=== PATIENT | female | born 1960 | race Two or more races ===

== ENCOUNTER 2020-04-04 12:39 | Outpatient (CLI) | payer SELFPAY ==
[2020-04-04 14:02] LABS: BASOPHILS # (AUTO) 0.1 /CMM (0.0-0.2); BASOPHILS % (AUTO) 2.3 % (0.0-2.0); EOSINOPHILS % (AUTO) 5.5 % (0.0-6.0); HEMATOCRIT 43 % (33-45); HEMOGLOBIN 14.3 g/dL (11.5-14.8); LYMPHOCYTES # (AUTO) 1.7 /CMM (0.8-4.8); LYMPHOCYTES % (AUTO) 30.9 % (20.0-44.0); MEAN CORPUSCULAR HGB CONC 33 g/dl (31.0-36.0); MEAN CORPUSCULAR VOLUME 87 fL (82-100); MONOCYTES # (AUTO) 0.3 /CMM (0.1-1.30); MONOCYTES % (AUTO) 5.3 % (2.0-12.0); NEUTROPHILS # (AUTO) 3.1 /CMM (1.8-8.9); PLATELET COUNT (AUTO) 290 /CMM (150-450); RED BLOOD CELL COUNT(AUTO) 4.95 MIL/uL (4.0-5.2); WHITE BLOOD COUNT (AUTO) 5.5 K/uL (4.3-11.0)
[2020-04-04 15:16] LABS: CREATININE 0.8 mg/dL (0.6-1.3)
== END 2020-04-04 23:59 | disposition home or self-care (01) ==
LOC: LAB 12:39
PROVIDERS: ATTEND Nurse Practitioner Acute Care
DX: Z01.818 Encounter for other preprocedural examination (principal)
CPT/HCPCS: 36415; 80048-TC; 84702-TC; 85025-TC; 85610-TC; 85730-TC; 86803; 87806

== ENCOUNTER 2020-06-08 14:07 | Emergency (ER) | payer OTHER ==
[~2020-06-08] VITALS: Ht 160 cm; Wt 68.9 kg
--- NOTE | 2020-06-08 14:25 | NUR ---
FEVER AND COUGH X 2 DAYS. REQUESTING COVID TEST. 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 PATIENT A/OX4, BREATHING EVEN AND UNLABORED, NO SOB NOTED. VSS.
--- NOTE | 2020-06-08 15:10 | NUR ---
COVID SWAB SENT.
--- NOTE | 2020-06-08 15:58 | NUR ---
RECIEVED CALL FROM LAB. PT IS RAPID COVID (+)
[2020-06-08] MEDS ORDERED: MECL-159 PO (16:13)
[2020-06-08 16:46] VITALS: BP 110/65
--- NOTE | 2020-06-08 16:46 | NUR ---
PATIENT A/OX4, BREATHING EVEN AND UNLABORED, NOS OB NOTED, NEEDS ATTENDED. KEPT COMFORTABLE. Patient discharged to home in stable condition. Written and verbal after care instructions given. Patient verbalizes understanding of instruction.
== END 2020-06-08 16:46 | disposition home or self-care (01) ==
LOC: ER 14:13
DX: U07.1 COVID-19 (principal); R42 Dizziness and giddiness; Z79.899 Other long term (current) drug therapy
CPT/HCPCS: 70450; 71045; 87426; 99285; C9803 ×2; U0003

== ENCOUNTER 2022-05-02 17:19 | Emergency (ER) | payer OTHER ==
[~2022-05-02] VITALS: Ht 160 cm; Wt 62.6 kg
[~2022-05-02 17:19] MED LIST: MECL-159 PO
[2022-05-02 17:22] VITALS: BP 133/87
[2022-05-02] MEDS ORDERED: ACETAMINOPHEN 325 MG TABLET PO ONE (19:30)
[2022-05-02] MEDS ORDERED: DEXAMETHASONE SOD PHOSPHATE 10 MG/ML VIAL IM ONE (19:30)
--- NOTE | 2022-05-02 19:43 | NUR ---
SWAB FOR COVID19, RAPID INFLUENZA, RAPID STREP SENT TO LAB
[2022-05-02] MEDS ORDERED: IBUP-1955 PO (19:44)
[2022-05-02] MEDS ORDERED: BENZ-13 PO (19:44)
[2022-05-02] MEDS ORDERED: AMOX500C2 PO (19:45)
[2022-05-02] MEDS ORDERED: DEXAMETHASONE SOD PHOSPHATE 10 MG/ML VIAL ONE (19:48)
[2022-05-02] MEDS ORDERED: ACETAMINOPHEN 325 MG TABLET ONE (19:48)
--- NOTE | 2022-05-02 20:14 | NUR ---
Patient discharged to home in stable condition. Written and verbal after care instructions given. Patient verbalizes understanding of instruction.
== END 2022-05-02 20:13 | disposition home or self-care (01) ==
LOC: ER 17:20
DX: J06.9 Acute upper respiratory infection, unspecified (principal); J02.9 Acute pharyngitis, unspecified; Z20.822 Contact with and (suspected) exposure to COVID-19
CPT/HCPCS: 99283; 87426; 96372; 87804; 87880; U0003; J1100; C9803; 86403-TC

== ENCOUNTER 2022-05-09 10:06 | Inpatient (IN) | payer OTHER ==
[~2022-05-09] VITALS: Ht 160 cm; Wt 62.6 kg
[~2022-05-09 10:06] MED LIST changes: +AMOX500C2 PO; +BENZ-13 PO; +IBUP-1955 PO
--- NOTE | 2022-05-09 10:07 | NUR ---
pt to er bed 07 c/o sudden onset chest pain 10 minutes prior to coming in. pt was working when she started feeling nauseated, chest discomfort w/ "pounding headache" endorses that she had 2 episosde of vomiting. gowned and placed on monitor. NSR on tele. no noted ectopy. awaiting md lee.
--- NOTE | 2022-05-09 10:16 | NUR ---
dr cruz at bedside for eval.
[2022-05-09] MEDS ORDERED: ONDANSETRON HCL/PF 4 MG/2 ML VIAL ONE ×2 (10:28→11:58)
[2022-05-09] MEDS ORDERED: ONDANSETRON HCL/PF - ER 4 MG/2 ML VIAL IV ONE ×2 (10:30→12:00)
--- NOTE | 2022-05-09 10:30 | NUR ---
iv line started blood drawn and sent to lab.
[2022-05-09 10:33] LABS: BASOPHILS % (AUTO) 0.3 % (0.0-2.0); EOSINOPHILS % (AUTO) 1.6 % (0.0-6.0); HEMATOCRIT 40 % (33-45); LYMPHOCYTES % (AUTO) 19.9 % (20.0-44.0); MEAN CORPUSCULAR HGB CONC 32 g/dl (31.0-36.0); MEAN CORPUSCULAR VOLUME 87 fL (82-100); MONOCYTES # (AUTO) 0.6 K/uL (0.1-1.30); NEUTROPHILS # (AUTO) 11.3 K/uL (1.8-8.9); NEUTROPHILS % (AUTO) 74.2 % (43.0-81.0); PLATELET COUNT (AUTO) 402 K/uL (150-450); RED BLOOD CELL COUNT(AUTO) 4.64 MIL/uL (4.0-5.2); WHITE BLOOD COUNT (AUTO) 15.2 K/uL (4.3-11.0)
[2022-05-09 10:49] LABS: ALANINE AMINOTRANSFERASE 30 U/L (12-78); ALBUMIN 3.6 g/dL (3.4-5.0); ALKALINE PHOSPHATASE 86 U/L (46-116); ASPARTATE AMINOTRANSFERASE 15 U/L (15-37); BILIRUBIN,DIRECT 0.1 mg/dL (0.0-0.2); BILIRUBIN,TOTAL 0.5 mg/dL (0.2-1.0); CALCIUM, SERUM 8.8 mg/dL (8.5-10.1); CARBON DIOXIDE 30 mmol/L (21-32); CHLORIDE 103 mmol/L (98-107); GLUCOSE 139 mg/dL (74-106); POTASSIUM 3.6 mmol/L (3.5-5.1); SODIUM SERUM 139 mmol/L (136-145); TOTAL PROTEIN, SERUM 7.4 g/dL (6.4-8.2); UREA NITROGEN, BLOOD 15 mg/dL (7-18)
--- NOTE | 2022-05-09 11:10 | NUR ---
PRODUCT MARKETING EXECUTIVE AT BEDSIDE.
--- NOTE | 2022-05-09 11:10 | NUR ---
endorsed to chris gomez for continuity of care.
[2022-05-09] MEDS ORDERED: IV NS 0.9% 1,000 ML BAG IV ONE (11:30)
[2022-05-09] MEDS ORDERED: MECLIZINE HCL 25 MG TABLET ONE (11:58)
[2022-05-09] MEDS ORDERED: MECLIZINE HCL 12.5 MG TABLET PO ONE (12:00)
--- NOTE | 2022-05-09 12:09 | NUR ---
PATIENT TAKEN TO CT VIA [facility]
--- NOTE | 2022-05-09 12:11 | NUR ---
PT RETURNED FROM RADIOLOGY
--- NOTE | 2022-05-09 12:47 | NUR ---
URINE SAMPLE COLLECTED AND SENT TO LAB
[2022-05-09 12:59] LABS: BILIRUBIN,URINE NEGATIVE (NEGATIVE); COLOR,URINE YELLOW (YELLOW); LEUKOCYTE ESTERASE ,URINE NEGATIVE (NEGATIVE); NITRITE, URINE NEGATIVE (NEGATIVE); PROTEIN,URINE NEGATIVE (NEGATIVE); UGLUCOSE NEGATIVE (NEGATIVE); UROBILINOGEN,URINE 0.2 EU/dL (0.2)
--- NOTE | 2022-05-09 14:08 | NUR ---
SWAB FOR COVID19 SENT TO LAB
--- NOTE | 2022-05-09 14:09 | NUR ---
MOVE SHEET SUBMITTED.
--- NOTE | 2022-05-09 16:43 | NUR ---
GOT BED 329-1
--- NOTE | 2022-05-09 16:59 | NUR ---
HINA DENTON CALLED [phone] GIVING AUTH FOR OBS #[id number]
--- NOTE | 2022-05-09 17:03 | NUR ---
[facility] CALLED ALUMNI RELATIONS COORDINATOR PAGED.
--- NOTE | 2022-05-09 17:23 | NUR ---
REPORT GIVEN TO CONOR AMAYA ROOM 329-1 FOR ROHITH
[2022-05-09] MEDS ORDERED: ENOXAPARIN SODIUM 40 MG/0.4 ML DISP.SYRIN SQ SCH (17:30)
[2022-05-09] MEDS ORDERED: ONDANSETRON HCL/PF 4 MG/2 ML VIAL IVP PRN (17:30)
[2022-05-09] MEDS ORDERED: MAG HYDROX/AL HYDROX/SIMETH 30 ML UDC PO PRN (17:30)
[2022-05-09] MEDS ORDERED: MORPHINE SULFATE INJ 2 MG/ML DISP.SYRIN IV PRN (17:30)
[2022-05-09] MEDS ORDERED: ACETAMINOPHEN 325 MG TABLET PO PRN (17:30)
--- NOTE | 2022-05-09 18:50 | NUR ---
ERP ANALYST ADMITTING NOTES: ADMITTED A 62YO FEMALE PT FROM ER ACCOMPANIED BY TECHNICAL TRAINING MANAGER AND TRANSPORTER VIA BED. PT A/O X 4 AND ABLE TO MAKE NEEDS KNOWN. NO SOB OR CARDIAC DISTRESS NOTED, DENIES PAIN. NO N/V AT THIS TIME. ON AIR CONDITIONING TECHNICIAN WITH CURRENT READING OF SINUS RHYTHM @ 72BPM. IV ACCESS ON LAC GAUGE 20 PATENT INTACT AND INFUSING NS @75ML/HR. SKIN IS INTACT. BELONGINGS NOTED. SAFETY MEASURES INITIATED: BED LOCKED AND IN LOWEST POSITION, SIDE RAILS UP X 2. CALL LIGHT IN EASY REACH WILL MONITOR ACCORDINGLY.
[2022-05-09] MEDS ORDERED: CEFEPIME 2 GM in IV D5W 100 ML IV SCH (19:00)
[2022-05-09] MEDS: PANTOPRAZOLE 40 MG VIAL IV SCH (19:01)
[2022-05-09] MEDS: IV NS 0.9% 1,000 ML IV SCH (19:02)
[2022-05-09 20:00] VITALS: BP 125/83
[2022-05-10] VITALS: BP 123/78
[2022-05-10 04:00] VITALS: BP 120/76
[2022-05-10 05:00] VITALS: BP 120/76
[2022-05-10] MEDS: IV NS 0.9% 1,000 ML IV SCH (06:50)
--- NOTE | 2022-05-10 07:25 | NUR ---
MECHANICAL SERVICE SPECIALIST OPENING NOTES RECEIVED PATIENT LYING IN BED, AOX4, COOPERATIVE, ABLE TO MAKE NEEDS KNOWN, PATIENT IS NOT IN ANY FORM OF SOB, NOR ANY FORM OF DISTRESS, ON ROOM AIR, SATURATING WELL. PATIENT IS ON TELEMONITORING SHOWING SINUS RHYTHM AT 64 BPM. IV ACCESS ON RAC G#20 RUNNING NS 75 ML/HR, PATENT AND INFUSING WELL.DENIES ANY PAIN OR DISCOMFORT AT THE MOMENT. SAFETY MEASURES IN PLACE: BED IN LOWEST AND LOCKED POSITION, SIDE RAILS X2, CALL LIGHT AND TRAY TABLE WITH WITHIN EASY REACH. WILL CONTINUE TO MONITOR.
--- NOTE | 2022-05-10 07:28 | NUR ---
END OF SHIFT REPORT Patient in bed, Alert Oriented x4. Sinus rhythm in the Tele monitor HR 69. Oxygen saturation high 90's. Observed no sob with ambulation. Right AC peripheral line, IVF infusing. On IV abx Afebrile. Denies chest pain, no episode of vomiting. Denies nausea. No BM during the shift, denies abd pain. No acute distress during the shift. 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 Discussed with length of time to patient, catheter can collapse when drawing blood sample and sample for test can be diluted with current IVF running, also chances of blood can be hemolyzed. Patient declined education, still refused entry level lab technician to stick vein for blood sample. 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 Again nurse discussed to patient blood sample can be drawn from PICC line by RN for ordered lab works, as not from PIV line. Endorsed to JOSE LUIS Jeter.
[2022-05-10 08:21] VITALS: BP 144/60
[2022-05-10] MEDS: PANTOPRAZOLE 40 MG VIAL IV SCH (09:24)
--- NOTE | 2022-05-10 09:30 | NUR ---
RN NOTES - DR COOK OK'D TO DRAW BLOOD FROM PERIPHERAL IV LINE AND DC NS PER PT'S REQUEST.
[2022-05-10] MEDS ORDERED: METOPROLOL SUCCINATE 25 MG TAB.SR.24H PO SCH (10:00)
[2022-05-10 10:08] VITALS: BP 144/60
[2022-05-10] MEDS ORDERED: MECL-159 PO (10:13)
[2022-05-10] MEDS ORDERED: METO-357 PO (10:13)
[2022-05-10] MEDS ORDERED: AMOX-430 PO (10:13)
[2022-05-10] MEDS ORDERED: LORA-259 PO (10:13)
[2022-05-10] MEDS ORDERED: ONDA4TAB5 PO (10:13)
--- NOTE | 2022-05-10 11:30 | NUR ---
GLUING PRESSMAN DISCHARGE NOTE PT DISCHARGED TO HOME IN STABLE CONDITION. PT AOX4, ABLE TO MAKE NEEDS KNOWN, STABLE ON ROOM AIR, NO SOB NOTED, NOT IN ANY APPARENT DISTRESS. LAST TELE READING WAS SINUS RHYTHM 65 BPM. VITAL SIGNS TAKEN, STABLE AND RECORDED. PT SKIN IS INTACT, DENIES PAIN OR DISCOMFORT AT THIS TIME. ALL BELONGINGS ACCOUNTED FOR AND FROM SIGNED. DISCHARGE INSTRUCTIONS GIVEN TO PATIENT. IV ACCESS REMOVED, NO SIGNS OF BLEEDING, PRESSURE GAUZE APPLIED. PATIENT LEFT THE UNIT AT AROUND 1125 AMBULATORY, ACCOMPANIED TO THE LOBBY SAFELY. MD AND CHARGE NURSE AWARE OF DC.
== END 2022-05-10 11:20 | disposition home or self-care (01) | DRG 310 ==
LOC: ER 10:07 → TELE 17:18
PROVIDERS: ADMIT Internal Medicine; ATTEND Internal Medicine
DX: I49.3 Ventricular premature depolarization (principal); Z20.822 Contact with and (suspected) exposure to COVID-19; Z79.899 Other long term (current) drug therapy; R03.0 Elevated blood-pressure reading, without diagnosis of hypertension; Z86.19 Personal history of other infectious and parasitic diseases; R73.9 Hyperglycemia, unspecified; F41.9 Anxiety disorder, unspecified; R42 Dizziness and giddiness; N20.0 Calculus of kidney; K52.9 Noninfective gastroenteritis and colitis, unspecified
CPT/HCPCS: 36415; 70450-TC; 71045-TC; 71250-TC; 76705-TC; 80048-TC; 80076-TC; 83605-TC; 83690-TC; 84484-TC; 85025-TC; 87081-TC; 93307-TC; C9113; C9803; G0378; J0692; J1650; J2405; J7030; J7060; J8597